=== PATIENT | female | born 1950 | race Caucasian/White ===

== ENCOUNTER 2023-01-27 10:44 | Day surgery (SDC) | payer MEDICARE, SELFPAY ==
[2022-11-14 07:31] VITALS: BMI 24.7
[2022-11-14 13:52] VITALS: BMI 24.5
[2023-01-15 10:29] VITALS: BMI 24.5
[2023-01-27 11:08] VITALS: BP 150/91; PULSE 70; RESP 16; TEMP 37.4; O2SAT 99; BMI 24.7
--- NOTE | 2023-01-27 11:11 | PM.HPGS ---
History of Present Illness History of Present Illness Consent: Risks, benefits, and alternatives have been discussed and questions answered. Patient agrees to proceed with procedure. Chief complaint: positive cologuard test Narrative: Bisi Garcia is a 72 year old female Presents for screening colonoscopy. Her recent Cologuard test was found to be positive. Patient's family history is significant that her mother had colon cancer. Patient states previous colonoscopy was 20 years ago. Was unremarkable at that time. Her current weight and bowel movements are normal. Patient denies abdominal pain. She has had no bleeding. Review of Systems Review of Systems: Systems is noncontributory. [facility] Past Medical History Medical History Anxiety Arthritis Osteoporosis Surgical History Surgical History H/O bilateral hip replacements (~02/2021) Left- 2020, Right 02/2021 H/O total mastectomy of left breast (~2015) H/O total mastectomy of right breast (~2015) History of carpal tunnel surgery of left wrist (~2011) History of Mohs surgery for squamous cell carcinoma of skin (~2015) Right inner thigh above knee Family History Family History Father Family history of diabetes mellitus in first degree relative Family history of coronary artery disease Patient's father is Mother Carcinoma of colon Other Diabetes mellitus Social History Social History (Updated 01/24/23 @ 14:58 by Sonia Lopez) Years smoked: 10 Smoking status: Former smoker Second hand tobacco smoke exposure: No Smoking end date: 02/17/83 Alcohol intake: current Substance use: never Substance use type: marijuana Lack of Transportation: No Lack of Food: Never True Current Housing: I Have Housing Concerned About Future Housing: No Difficulty Paying Gas/Electric Bills: No Difficulty Paying for Meds: No Currently Unemployed: No Education: Bachelor's Degree Difficulty w/ Childcare or Family Care: No Living arrangements: with family Occupation/Education: retired Gender identity (if verbalized by the patient): Female Sexual Orientation (if Verbalized by the Patient): Straight or Heterosexual Spiritual care concerns: No Agree to blood products: Yes Meds Home Medications and Allergies Home Medications Medication Instructions Recorded Confirmed Type zolpidem 10 mg tablet 10 mg PO .qhs #30 tabs 05/07/19 01/27/23 Rx alendronate 70 mg tablet 70 mg PO WEEKLY 06/14/22 01/27/23 History atorvastatin 20 mg tablet 20 mg PO QHS 06/14/22 01/27/23 History naproxen 500 mg tablet 500 mg PO DAILY 06/14/22 01/27/23 History Allergies Allergy/AdvReac Type Severity Reaction Status Date / Time amoxicillin Allergy Unknown Rash Verified 01/27/23 11:07 Exam Narrative: Physical exam reveals patient to be alert. Nine stable. HEENT exam is unremarkable. Patient is anicteric. Lungs are clear to auscultation and to percussion. Is without murmur or extra sounds. At sounds are present soft nontender with no organomegaly. Digital external rectal exam normal. Assessment and Plan Assessment and plan (1) Positive colorectal cancer screening using Cologuard test: Code(s): R19.5 - Other fecal abnormalities Status: Acute Assessment and Plan: Patient had positive Cologuard test the suggest higher chance of polyps. Colonoscopy to be performed today. (2) Family history of colon cancer in mother: Code(s): Z80.0 - Family history of malignant neoplasm of digestive organs Status: Acute Assessment and Plan: Patient reports her mother had colon cancer. Suggest follow-up colonoscopy at 5 year intervals.
[2023-01-27] MEDS: LACTATED RINGERS 1,000 ML 150 ML IV CONT (11:16)
--- NOTE | 2023-01-27 11:32 | WPDANESEPPF ---
Anes - Initial Pre Proc Eval Procedure: Operation Date: 01/27/23 14:00 Proposed Procedures p Diagnostic Colonoscopy - Kd Woodard MD Date/Time: 01/27/23 11:32 Surgeon: Kd Woodard MD Pre Op Diagnosis: positive cologuard test Patient Data Age: 72 Gender: F Height: 1.63 m Weight: 65.3 kg Last Vital Signs Temp 37.4 C 01/27/23 11:08 Pulse 70 01/27/23 11:08 Resp 16 01/27/23 11:08 BP 150/91 H 01/27/23 11:08 Pulse Ox 99 01/27/23 11:08 O2 Del Method Room Air 01/27/23 11:08 Allergies Allergy/AdvReac Type Severity Reaction Status Date / Time amoxicillin Allergy Unknown Rash Verified 01/27/23 11:07 Home Medications Medication Instructions Recorded Confirmed Type zolpidem 10 mg tablet 10 mg PO .qhs #30 tabs 05/07/19 01/27/23 Rx alendronate 70 mg tablet 70 mg PO WEEKLY 06/14/22 01/27/23 History atorvastatin 20 mg tablet 20 mg PO QHS 06/14/22 01/27/23 History naproxen 500 mg tablet 500 mg PO DAILY 06/14/22 01/27/23 History Patient hx anesthesia problems: none Family hx anesthesia problems: none Results Review: All pre-operative results and documents have been reviewed as part of the pre-operative evaluation. [facility] Past Medical History Medical History Anxiety Arthritis Osteoporosis Surgical History Surgical History H/O bilateral hip replacements (~02/2021) Left- 2020, Right 02/2021 H/O total mastectomy of left breast (~2015) H/O total mastectomy of right breast (~2015) History of carpal tunnel surgery of left wrist (~2011) History of Mohs surgery for squamous cell carcinoma of skin (~2015) Right inner thigh above knee Family History Family History Father Family history of diabetes mellitus in first degree relative Family history of coronary artery disease Patient's father is Mother Carcinoma of colon Other Diabetes mellitus Social History Social History Years smoked: 10 Smoking status: Former smoker Second hand tobacco smoke exposure: No Smoking end date: 02/17/83 Alcohol intake: current Substance use: never Substance use type: marijuana Lack of Transportation: No Lack of Food: Never True Current Housing: I Have Housing Concerned About Future Housing: No Difficulty Paying Gas/Electric Bills: No Difficulty Paying for Meds: No Currently Unemployed: No Education: Bachelor's Degree Difficulty w/ Childcare or Family Care: No Living arrangements: with family Occupation/Education: retired Gender identity (if verbalized by the patient): Female Sexual Orientation (if Verbalized by the Patient): Straight or Heterosexual Spiritual care concerns: No Agree to blood products: Yes Anes - Eval Final PreProcedure Day of Procedure 01/27/23 11:32 Patient weight: normal Heart: regular rate and rhythm Lungs: clear to auscultation Airway: Mallampati scale Neurological: alert and oriented Last oral intake: >/= 8 hours ASA classification: II Emergent: no Anesthetic plan: proceed Anesthesia type and monitoring: general GIVS and standard monitoring Results Review: All pre-operative results and documents have been reviewed as part of the pre-operative evaluation. Informed Consent: The patient's anesthetic plan and its attendant risks and benefits were discussed with the patient/family/POA. Questions were solicited and answers provided to the satisfaction of the patient/family/POA.
[2023-01-27 12:02] VITALS: BP 122/98; PULSE 68; RESP 16; O2SAT 99
--- NOTE | 2023-01-27 12:03 | WPDANESPN ---
Anes - Prog Note Post-Op Date/Time: 01/27/23 12:03 Cardiovascular status: normal Respiratory status: normal Airway patency: baseline Mental status: baseline Post-Op hydration status: normal Vital Signs: Last Vital Signs Temp 37.4 C 01/27/23 11:08 Pulse 70 01/27/23 11:08 Resp 16 01/27/23 11:08 BP 150/91 H 01/27/23 11:08 Pulse Ox 99 01/27/23 11:08 O2 Del Method Room Air 01/27/23 11:08 Pain Score (VAS): 0/10 I/O: Intake & Output 01/26/23 01/27/23 01/27/23 23:59 07:59 15:59 Intake Total 650 Balance 650 Patient Feedback: Patient satisfied with anesthetic care.
[2023-01-27 12:12] VITALS: BP 135/74; PULSE 72; RESP 16; O2SAT 99
[2023-01-27 12:22] VITALS: BP 122/70; PULSE 70; RESP 20; O2SAT 99
== END 2023-01-27 12:30 | disposition home or self-care (01) ==
PROVIDERS: PCP Family Medicine; Visit Provider Internal Medicine Gastroenterology
PROC: 0DJD8ZZ Inspection of Lower Intestinal Tract, Via Natural or Artificial Opening Endoscopic (ICD-10-PCS; CPT 45378; principal; 2023-01-27 14:00)
DX: Z80.0 Family history of malignant neoplasm of digestive organs (principal); R19.5 Other fecal abnormalities; K57.30 Diverticulosis of large intestine without perforation or abscess without bleeding; K64.8 Other hemorrhoids
CPT/HCPCS: 45378

== ENCOUNTER 2023-09-01 10:44 | Outpatient (CLI) | payer MEDICARE, SELFPAY ==
--- NOTE | ~2023-09-01 | DEXA_ITS ---
Bone Density Report Name: FAHEEM ALMANZAR Age: 73 Sex: Female Ethnicity: White Date of : 1950 Indication: postmenopausal; screening for osteoporosis; height loss; history of glucocorticoids; cancer; Referring Provider: ELLA RAMIREZ Study: Bone densitometry was performed. Exam Date: September 01, 2023 Accession number: [id number] Bone Density: Region BMD T-score Z-score Classification AP Spine(L1-L4) 0.974 -0.7 1.7 Normal World Health Organization criteria for BMD impression classify patients as: Normal (T-score at or above -1.0), Osteopenia (T-score between -1.0 and -2.5), or Osteoporosis (T-score at or below -2.5). Clinical Information Provided by Patient: Has taken Glucocorticoids Has used the following medications: Fosamax (i.e. alendronate) Has the following medical conditions: Cancer Patient maximum height was 64.5 Menopause Age: 58 No regular weight bearing exercise Drinks caffeinated beverages Onset of menses at age 13 Number of children 1 Impression: The patient has normal bone mass. The patient has risk factors, including: history of glucocorticoid therapy. Discussion: BONE DENSITY IS ABOVE THE MINIMUM DESIRABLE LEVEL AT ALL SKELETAL SITES TESTED. This patient?s bone mineral density is above the minimum desirable level (T-score -1.0 or better) at all sites measured. The patient should follow a healthful lifestyle (good nutrition with adequate calcium and vitamin D, and appropriate weight-bearing exercise). Follow-Up: Consider repeating this study in 5 years or sooner if there is some new clinical indication. Reported by: SAVAGE on 09/01/2023 11:24:00 AM. Reviewed, dictated and finalized at location ACece CARRASCO
== END 2023-09-01 10:45 | disposition home or self-care (01) ==
PROVIDERS: PCP Family Medicine; Visit Provider Family Medicine
DX: Z78.0 Asymptomatic menopausal state (principal); M81.0 Age-related osteoporosis without current pathological fracture
CPT/HCPCS: 77080

== ENCOUNTER 2023-11-20 12:48 | Outpatient (CLI) | payer MEDICARE, SELFPAY | END 2023-11-20 12:49 | disposition home or self-care (01) | LOC: CHSIMG 12:49 | PROVIDERS: PCP Family Medicine; Visit Provider Nurse Practitioner | DX: Z12.31 Encounter for screening mammogram for malignant neoplasm of breast (principal) | CPT/HCPCS: 99199 ==

== ENCOUNTER 2024-06-14 14:41 | Outpatient (CLI) | payer MEDICARE, SELFPAY ==
--- NOTE | ~2024-06-14 | CT_ITS ---
Clinical Indication: Atherosclerosis of aorta CT Scan of the Chest, Abdomen without Contrast: Technique: Contiguous sections were acquired throughout the chest and abdomen without IV contrast adm inistration. Dose reduction technique was used on this scan by utilizing automated exposure control a nd iterative reconstruction technique. The dose-length product (DLP) was 510.10 mGy-cm. Findings: There is no evidence of any significant mediastinal, hilar or axillary lymphadenopathy. There is mode rate atherosclerotic calcification of the thoracic aorta and coronary arteries. There is no evidence of pleural or pericardial effusion. The lungs are clear. No pulmonary nodules or infiltrates are noted. The liver, spleen, pancreas, gallbladder, adrenals and kidneys are within normal limits. There is ext ensive atherosclerotic calcification of the abdominal aorta and iliac vessels, without aneurysm. No l ymphadenopathy. Visualized bowel loops are unremarkable. No ascites. Impression: Atherosclerosis of the aorta, as detailed above. No aneurysm. Reviewed, dictated and finalized at location . Impression: Atherosclerosis of the aorta, as detailed above. No aneurysm.
== END 2024-06-14 14:42 | disposition home or self-care (01) ==
LOC: MICIMG 14:42
PROVIDERS: PCP Nurse Practitioner; Visit Provider Nurse Practitioner
DX: I70.0 Atherosclerosis of aorta (principal)
CPT/HCPCS: 71250; 74150

== ENCOUNTER 2024-11-08 16:04 | Outpatient (CLI) | payer MEDICARE, SELFPAY ==
--- OUTSIDE RECORDS SUMMARY | 2024-11-08 16:07 | XMS_ITS | Encounter Summary ---
Author Organization [facility] Healthcare Address [address] [place] [address] Care Team Providers Care Shaper Operator Name Role Phone Dc Carrillo MD Primary Care Provider Kath Choe MD Unavailable [phone] Alaina Quach MD Unavailable Last Grayson MD Unavailable [phone] Rickey Izaguirre MD Primary Care Provider [phone] Dominick Bliss MD Unavailable [phone] Encounter Details Date Type Department Care Team (Late st Contact Info) Description 05/16/2020 Telephone [facility] [address] [place] [address] Xiomy Kern, RT Social History Tobacco Use Types Packs/Day Years Used Date Smoking Tobacco: Former Smokeless Tobacco: Never Alcohol Use Standard Drinks/Week Comments Never 0 (1 standard drink = 0.6 oz pur e alcohol) AUDIT-C Answer Date Recorded Frequency of Alcohol Consumption Never 11/25/2019 Average Number of Drinks Not on file 020 Frequency of Binge Drinking Not on file 09/2019 Comments No Sex and Gender Information Value Date Recorded Sex Assigned at Not on file 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 Gender Identity Female 02/13/2021 8:39 AM CAUL DRESSER Sexual Orientation Not on file documented as of this encounter Plan of Treatment Not on file documented as of this encounter Visit Diagnoses Not on filedocumented in this encounter Care Teams Shaper Operator Relationship Specialty Start Date End Date Dc Carrillo MD [address] [place] [address] [place] [address] PCP - General 09/25/16 06/26/20 Rickey Izaguirre MD [address] [place] [address] PCP - General Family Medicine 06/27/20 Kath Choe MD [address] [place] [address] Surgeon Surgical Oncology 10/01/17 Alaina Quach MD [address] [facility] [address] [place] [address] Medical Oncologist/Floor Winder Medical Oncology 10/01/17 Last Grayson MD [address] [facility] [address] [place] [address] Plastic Surgeon Plastic Surgery 10/01/17 Dominick Bliss MD [address] [place] [address] Surgeon Orthopedic Surgery 03/07/21 documented as of this encounter
--- OUTSIDE RECORDS SUMMARY | 2024-11-08 16:07 | XMS_ITS | Clinical Summary ---
Author Organization [facility] Address [address] [place] [id number] Care Team Providers Care Wiper Blender Name Role Phone Unavailable Primary Care Provider Unavailabl e Immunizations Immunization Administration Dates Next Due MODERNA COVID-19 (12+) MRNA, LNP-S, PF, 100 MCG/ 0.5 ML DOSE 04/28/2020,03/31/2020 Social History Tobacco Use Types Packs/Day Years Used Date Smoking Tobacco: Never Assessed Comments Unknown Sex and Gender Information Value Date Recorded Sex Assigned at Not on file Legal Sex Female 8:18 PM CDT Gender Identity Not on file Sexual Orientation Not on file Plan of Treatment Health Maintenance Due Date Last Done Comments Colorectal Cancer Screening Colonoscopy (10 Years) 1950 Hepatitis C 06/19/1967 DTaP, Tdap and Td Vaccines ( 1 - Tdap) 1968 Pneumococcal Vaccine: 50+ Years (1 of 1 - PCV) 06/19/1999 Zoster Vaccines (1 of 2) 06/19/1999 Dexa Scan (General) 2014 RSV Immunization or 60+ Years (1 - 1-dose 75+ series) 2024 COVID-19 Vaccine (3 - 2024-2 6 season) 2024 04/28/2020, 03/31/2020 Meningococcal B Vaccine Aged Out No l onger eligible based on patient's age to complete this topic Meningococcal Vaccine Aged Out No horacio jasmeet eligible based on patient's age to complete this topic RSV Immunizations Under 20 Months Aged Out No longer eligible b ased on patient's age to complete this topic
--- OUTSIDE RECORDS SUMMARY | 2024-11-08 16:07 | XMS_ITS | Encounter Summary ---
Author Organization [facility] Address [address] [facility] [place] [address] Care Team Providers Care Recreation Leader Name Role Phone Bhupinder Thapa MD Unavailable [phone] Carla Lau DO Primary Care Provider [phone] Reason for Visit * Reason Onset Date Comments Medication Check 02/27/2024 Encounter Details Date Type Department Care Team (Late st Contact Info) Description 02/27/2024 Telephone [facility] - Centralized Scheduling [address] [place] [phone] Brent Dickinson MD [address] [place] [address] Medication Check Social History Tobacco Use Types Packs/Day Years Used Date Smoking Tobacco: Never Smokeless Tobacco: Never Alcohol Use Standard Drinks/Week Comments Yes 0 (1 standard drink = 0.6 oz pur e alcohol) social AUDIT-C Answer Date Recorded Q1: How often do you have a drink containing alcohol? Never 02/26/2024 Q2: How many drinks containi ng alcohol do you have on a typical day when you are drinking? Patient does not drink Q3: How often do you have si x or more drinks on one occasion? 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 COURSE LABORER documented in this encounter Plan of Treatment Not on file documented as of this encounter Visit Diagnoses Not on filedocumented in this encounter Care Teams Recreation Leader Relationship Specialty Start Date End Date Carla Lau DO [address] [place] [address] PCP - General Family Medicine 10/27/23 Bhupinder Thapa MD [address] [facility] [place] [address] Dermatology 10/08/23 documented as of this encounter
--- OUTSIDE RECORDS SUMMARY | 2024-11-08 16:08 | XMS_ITS | Clinical Summary ---
Author Organization [facility] Address [address] [facility] [place] [address] Care Team Providers Care Right Of Way Cutter Name Role Phone Bhupinder Thapa MD Unavailable [phone] Carla Lau DO Primary Care Provider [phone] Source Comments [facility],non-owned Affiliates and Associated Physician Practices is amultiple site organization consisting of ambulatory clinics and hospital sitesin [place], [place], [place] and [place]. This disclosure is being madepursuant to the Care Everywhere program and may not contain all information available regarding this patient. Last updated 17.[facility] Allergies Active Allergy Reactions Criticality Noted Date Comments Amoxicillin Rash Medium 11/28/2023 Medications * Be aware that medications may not be up to date on this document. Alwaysverify current medications with the patient. alendronate (Fosamax) 70 MG tablet Take 1 (one) tablet by mouth once a week 4 Active atorvastatin (Lipitor) 20 MG tablet Take 1 (one) tablet by mouth once daily Active vitamin D3 (Cholecalcifero l) 125 MCG (5000 UT) capsule Take 2,000 Units by mouth once daily Active multivitamins (One A Day) capsule Take 1 (one) capsule by mouth once daily Active zolpidem (Ambien) 10 MG tablet Take 1 (one) tablet by mouth at bedtime 4 Active dextran 70-hypromellose (Artificial Tears) 0.1-0.3 % SOLN 1-2 drops by Ophthalmic route as needed 10 mL 4 Active artificial tears ophthalmic ointment Instill into right eye 2 times daily 5 g 5 4 Active ibuprofen (Motrin) 400 MG tablet Take 1 (one) tablet by mouth every 6 hours 5 Active doxycycline hyclate 100 MG tablet Take 1 (one) tablet by mouth 2 times daily with morning and evening meal 5 Active naproxen (Naprosyn) 500 MG tablet 5 Active Active Problems Problem Noted Date Diagnosed Date 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 Dry eye 09/04/2024 Carpal tunnel syndrome 10/27/2023 Radiotherapy follow-up 10/27/2023 Bilateral primary osteoarthritis of knee 024 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 Lesion of right ulnar nerve 07/22/2022 Pain in right hand 05/01/2022 Primary osteoarthritis of right hip 05/23/2021 Aftercare following left hip joint replacement s urgery 03/19/2021 Primary osteoarthritis of right knee 12/21/2019 Osteopenia 01/19/2019 History of breast cancer 09/14/2018 Carcinoma of upper-inner quadrant of breast 12/19 Resolved Problems Problem Noted Date Diagnosed Date Resolved Date Malignant neoplasm of left b reast in female, estrogen receptor positive 10/02/2017 09/04/2024 Overview (10/27/2023): Multicenteric Encounters Date Type Department Care Team Description 10/05/2024 1:30 PM CDT Office Visit [facility] - Dermatology [address] [place] [phone] Castillo Andersen MD Scar (Primary Dx); Seborrheic keratoses 10/05/2024 Travel 09/23/2024 Telephone [facility] - Dermatology [address] [place] [phone] Castillo Andersen MD Surgery Scheduling 09/01/2024 11:15 AM CDT Office Visit [facility] - Ophthalmology [address] [place] [phone] Marlene Henson MD Cicatricial ectropion of right lower eyelid (Primary Dx); Dry eye; Malignant melanoma of face (HCC) 09/01/2024 Travel from Last 3 Months Social History Tobacco Use Types Packs/Day Years Used Date Smoking Tobacco: Never Smokeless Tobacco: Never Tobacco Cessation:Counseling Given: Not Answered Alcohol Use Standard Drinks/Week Comments Yes 0 [...] more drinks on one occasion? 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 Gender Identity Not on file Sexual Orientation Not on file Last Filed Vital Signs Vital Sign Reading Time Taken Comments Blood Pressure 136/84 04/26/2024 9:21 AM CDT Pulse 76 04/26/2024 9:21 AM CDT Temperature 36.4 C (97.6 F) 04/26/2024 9:21 AM CDT Respiratory Rate 18 04/26/2024 9:21 AM CDT Oxygen Saturation 96% 04/26/2024 9:21 AM CDT Inhaled Oxygen Concentration - - Weight 64 kg (141 lb) 04/26/2024 9:21 AM CDT Height 162.6 cm (5' 4) 04/26/2024 9:21 AM CDT Body Mass Index 24.2 04/26/2024 9:21 AM CDT Plan of Treatment Health Maintenance Due Date Last Done Comments COLOGUARD (AGES 45-75) - COL ON CA SCREENING 1950 COLON MONITORING 1950 COLONOSCOPY - COLON CA SCREENING 1950 CT COLONOGRAPHY - COLON CA SCREENING 1950 Colorectal Cancer Screening 1950 FIT - COLON CA SCREENING 1950 FLEX SIG - COLON CA SCREENING 1950 HEPATITIS C SCREENING 06/14/1967 DTAP/TDAP/TD VACCINES (1 - Tdap) 1968 PNEUMOCOCCAL VACCINE 50+ (1 of 1 - PCV) 06/19/1999 ZOSTER VACCINE (1 of 2) 06/19/1999 MAMMOGRAM 09/27/2018 09/27/2016 MEDICARE AWV CALENDAR YEAR 2024 Respiratory Syncytial Virus (RSV) Vaccine Pt: or over 60 yrs (1 - 1-dose 75+ series) 2024 COVID-19 VACCINE (3 - 2024-2 6 season) 2024 04/28/2020, 03/31/2020 INFLUENZA VACCINE (#1) 2024 BONE DENSITY TESTING Completed 02/03/2018, 01/22/2017 DEPRESSION SCREENING Completed 09/01/2024 HEPATITIS B VACCINE Aged Out No longe r eligible based on patient's age to complete this topic HIB VACCINE Aged Out No longer eligi ble based on patient's age to complete this topic HPV VACCINE Aged Out No longer eligi ble based on patient's age to complete this topic MENINGOCOCCAL (Group B) VACCINE SHARED DECISION-MAKING Aged Out No longer eligible based on patient's age to complete this topic MENINGOCOCCAL GROUPS A/C/Y/W VACCINE Aged Out No longer eligible b ased on patient's age to complete this topic Insurance [facility] MANAGED MEDICARE ADV Care Teams Right Of Way Cutter Relationship Specialty Start Date End Date Carla Lau DO [address] [place] [address] PCP - General Family Medicine 10/27/23 Bhupinder Thapa MD [address] [facility] [place] [address] Dermatology 10/08/23
--- OUTSIDE RECORDS SUMMARY | 2024-11-08 16:08 | XMS_ITS | Encounter Summary ---
Author Organization [facility] Healthcare Address [address] [place] [address] Care Team Providers Care Nautical Instrument Mechanic Name Role Phone Dc Carrillo MD Primary Care Provider Kath Choe MD Unavailable [phone] Alaina Quach MD Unavailable Last Grayson MD Unavailable [phone] Rickey Izaguirre MD Primary Care Provider [phone] Dominick Bliss MD Unavailable [phone] Reason for Visit * Reason Onset Date Comments Scheduling Appointments 06/13/2020 no answe r to confirm inj. 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 Gender Identity Female 02/13/2021 8:39 AM [employer] TECHNICIAN Sexual Orientation Not on file documented as of this encounter Plan of Treatment Not on file documented as of this encounter Visit Diagnoses Not on filedocumented in this encounter Care Teams Nautical Instrument Mechanic Relationship Specialty Start Date End Date Dc Carrillo MD [address] [place] [address] PCP - General 09/25/16 06/26/20 Rickey Izaguirre MD [address] [place] [address] PCP - General Family Medicine 06/27/20 Kath Choe MD [address] [place] [address] Surgeon Surgical Oncology 10/01/17 Alaina Quach MD [address] [facility] [address] [place] [address] Medical Oncologist/Senior Tax Analyst Medical Oncology 10/01/17 Last Grayson MD [address] [place] [address] Plastic Surgeon Plastic Surgery 10/01/17 Dominick Bliss MD [facility] [place] [address] Surgeon Orthopedic Surgery 03/07/21 documented as of this encounter
--- OUTSIDE RECORDS SUMMARY | 2024-11-08 16:08 | XMS_ITS | Clinical Summary ---
Author Organization [facility] Virtual Care Address [address] [place] [id number] Phone Care Team Providers Care Public Transit Bus Driver Name Role Phone Albert Choe MD Unavailable [phone] Alaina Quach MD Unavailable Last Grayson MD Unavailable [phone] Rickey Izaguirre MD Primary Care Provider [phone] Dominick Bliss MD Unavailable [phone] Allergies Active Allergy Reactions Criticality Noted Date Comments Amoxicillin Rash,Other (See comments) Medium 4 Rash on neck Medications zolpidem (AMBIEN) 10 mg tablet TAKE 1 TABLET BY MOUTH ONCE DAILY AT BEDTIME NEEDED 0 9 Active atorvastatin (LIPITOR) 10 mg tablet Take 1 tablet (10 mg total) by mouth daily Active multivitamin capsule Take 1 capsule by mouth daily Active cholecalciferol (VITAMIN D-3) 5,000 unit capsule Take 2,000 Units by mouth daily Takes occasionally Active ondansetron (ZOFRAN) 8 mg tabletIndicatio ns:Prevention of Post-Operative Nausea and Vomiting Take 1 tablet (8 mg total) by mouth every 8 (eight) hours as needed for nausea or vomiting 20 tablet 2 2 Active Additional Information Patient not taking.Reported on 10/25/2024 oxyCODONE-aceta minophen (PERCOCET) 5-325 mg per tabletIndicatio ns:Pain Take 1 tablet by mouth every 6 (six) hours as needed for pain 30 tablet 2 Active Additional Information Patient not taking.Reported on 10/25/2024 alendronate (FOSAMAX) 70 mg tablet 2 Active naproxen (NAPROSYN) 500 mg tablet TAKE 1 TABLET BY MOUTH TWICE DAILY WITH MEALS 60 tablet 4 Active Hospital, Clinic, or Other Facility Administered Medication Ordered Dose Route Frequency Start Date End Date Status lidocaine (XYLOCAINE) 20 mg/mL (2 %) injection 3 mLIndications:Admini stration of Local Anesthesia 3 mL One-Time Injection 10/25/2024 5 Ended lidocaine (XYLOCAINE) 20 mg/mL (2 %) injection 3 mLIndications:Admini stration of Local Anesthesia 3 mL One-Time Injection 10/25/2024 5 Ended methylPREDNISolone acetate (DEPO-medrol) injection 80 mgIndications:Primar y osteoarthritis of both knees 80 mg intra-artic One-Time Injection 10/25/2024 5 Ended methylPREDNISolone acetate (DEPO-medrol) injection 80 mgIndications:Primar y osteoarthritis of both knees 80 mg intra-artic One-Time Injection 10/25/2024 5 Ended Active Problems Problem Noted Date Diagnosed Date Bilateral primary osteoarthritis of knee 024 Primary osteoarthritis of right hip 05/23/2021 Aftercare following left hip joint replacement josue henson 03/19/2021 Primary osteoarthritis of right knee 12/21/2019 History of breast cancer 09/14/2018 Malignant neoplasm of left b reast in female, estrogen receptor positive 10/02/2017 Overview (10/02/2017): 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 12/19 Resolved Problems Problem Noted Date Diagnosed Date Resolved Date Primary osteoarthritis of left hip 12/22/2019 05/23/2021 Overview (12/22/2019): Added automatically from request for surgery [id number] Encounters Date Type Department Care Team Description 10/25/2024 11:45 AM CDT Office Visit [facility]opedic [facility] Medicine [address] [place] [phone] Rell Steel PA Primary osteoarthritis of both knees (Primary Dx) from Last 3 Months Surgical History Surgery Date Site/Laterality Comments FL FLUORO GUIDED INJECTION HIP LEFT 06/14/2020 Left FL FLUORO GUIDED INJECTION HIP LEFT 11/13/2020 Left BREAST SURGERY bilateral mastectomy SECTION CARPAL TUNNEL RELEASE Left Medical History Medical History Date Comments Malignant neoplasm of upper- inner quadrant of right female breast (HCC) Bilateral malignant neopl asm of upper inner quadrant of breast in female - (Added by TW Conv) Anxiety Hyperlipidemia Martínez's palsy Family History Medical History Relation Name Comments Colon cancer Mother Colon adenocarc inoma - (Added by TW Conv) Melanoma Other 1 Family history of malignant melanoma - (Added by TW Conv) Heart disease Other 2 Family history of cardiac disorder - (Added by TW Conv) Relation Name Status Comments Mother Other 1 Other 2 Social History Tobacco Use Types Packs/Day Years Used Date Smoking Tobacco: Former Smokeless Tobacco: Never Alcohol Use Standard Drinks/Week Comments Never 0 (1 standard drink = 0.6 oz pur e alcohol) AUDIT-C Answer Date Recorded Q1: How often do you have a drink containing alc ohol? 2-4 times a month 10/25/2024 Average Number of Drinks Not on file 025 Frequency of Binge Drinking Not on file 09/2024 Comments No Sex and Gender Information Value Date Recorded Sex Assigned at Not on file Legal Sex Female 10:20 AM APPRENTICE PAINTER HAND Gender Identity Female 02/13/2021 8:39 AM APPRENTICE PAINTER HAND Sexual Orientation Not on file Obstetrics History Last Filed Vital Signs Vital Sign Reading Time Taken Comments Blood Pressure 138/72 10/25/2024 11:49 AM CDT Pulse 81 10/25/2024 11:49 AM CDT Temperature 36.3 C (97.3 F) 07/31/2021 11:00 AM CDT Respiratory Rate 20 07/31/2021 11:00 AM CDT Oxygen Saturation 97% 07/31/2021 11:00 AM CDT Inhaled Oxygen Concentration - - Weight 63.5 kg (140 lb) 10/25/2024 11:49 AM CDT Height 160 cm (5' 3) 10/25/2024 11:49 AM CDT Body Mass Index 24.8 10/25/2024 11:49 AM CDT Plan of Treatment Health Maintenance Due Date Last Done Comments Colon Cancer Screening-Colonoscopy 1950 Depression Screening 1950 Hepatitis C Screening 1950 DTaP/Tdap/Td Vaccine (1 - Tdap) 1960 Hepatitis B Screening 06/19/1967 Pneumococcal vaccine 65+ (1 of 1 - PCV) 06/19/1999 Zoster Vaccine (1 of 2) 06/19/1999 Well Visit 65+ 2014 Osteoporosis Screening-Bone Density Scan 02/04/2020 02/03/2018, 01/22/2017 Fall Risk Assessment 07/31/2022 07/31/2021 Covid-19 Vaccine (4 - 2024-2 6 season) 2024 12/25/2020, 04/28/2020, 03/31/2020 Influenza Vaccine (#1) 2024 12/04/2020, 2019 Breast Cancer Screening-Mammogram Discontinued 017 Medical Devices Implanted Type Area Supervisor Force Adjustment Device Identifier Shelf Expiration Date Model / Serial / Lot [employer] [id number] Xenia 52mm Sector Hip Shell Acetabular Gription Sterile Latex Free - [id number] Implanted:Qty: 1 on 03/07/2021 by Dominick Bliss MD at [facility] Left: Hip [employer] 12/17/2030 [id number] / / [id number] [employer] 1217-35-500 Xenia 6.5mm 35mm Acetabular Cancellous Screw Bone Sterile - [id number] Implanted:Qty: 1 on 03/07/2021 by Dominick Bliss MD at [facility] Left: Hip [employer] 12/17/2030 1217-35-500 / / [id number] [employer] [id number] Actis 105mm Collar Hip 5 High Offset Stem Femoral - [id number] Implanted:Qty: 1 on 03/07/2021 by Dominick Bliss MD at [facility] Left: Hip [employer] 12/17/2030 [id number] / / [id number] [employer] [id number] Articul/Kunal 36mm Cementless Hip +1.5mm 12/14 Taper Head Femoral Latex Free - [id number] Implanted:Qty: 1 on 03/07/2021 by Dominick Bliss MD at [facility] Left: Hip [employer] 12/17/2025 [id number] / / [id number] [employer] [id number] Quickset 25mm 1 Piece Flexible Bit Drill - Sjtlot - [id number] Implanted:Qty: 1 on 03/07/2021 by Dominick Bliss MD at [facility] Left: Hip [employer] [id number] / [id number] / [id number] [employer] [id number] Xenia 52mm 36mm Hip Neutral Liner Acetabular Altrx Sterile Latex Free - [id number] - [id number] Implanted:Qty: 1 on 03/07/2021 by Dominick Bliss MD at [facility] Left: Hip [employer] [id number] 01/16/2026 [id number] / [id number] / [id number] [employer] Actis 105mm Collar Hip 5 High Offset Stem Femoral [id number] - [id number] Implanted:Qty: 1 on 07/30/2021 by Dominick Bliss MD at [facility] Right: Hip [employer] 02/16/2031 [id number] / / [id number] [employer] Articul/Kunal 36mm Cementless Hip +1.5mm 12/14 Taper Head Femoral Latex Free [id number] - [id number] Implanted:Qty: 1 on 07/30/2021 by Dominick Bliss MD at [facility] Right: Hip [employer] 06/16/2026 [id number] / / [id number] [employer] Xenia 52mm 36mm Hip Neutral Liner Acetabular Altrx Sterile Latex Free [id number] - [id number] Implanted:Qty: 1 on 07/30/2021 by Dominick Bliss MD at [facility] Right: Hip [employer] 06/16/2026 [id number] / / [id number] [employer] Xenia 52mm Sector Hip Shell Acetabular Gription Sterile Latex Free [id number] - [id number] Implanted:Qty: 1 on 07/30/2021 by Dominick Bliss MD at [facility] Right: Hip [employer] 06/17/2031 [id number] / / [id number] [employer] Xenia 6.5mm 35mm Acetabular Cancellous Screw Bone Sterile 1217-35-500 - [id number] Implanted:Qty: 1 on 07/30/2021 by Dominick Bliss MD at [facility] Right: Hip [employer] 04/17/2031 1217-35-500 / / [id number] Procedures Procedure Name Priority Date/Time Associated Diagnosis Comments SC ARTHROCENTESIS ASPIR&/INJ MAJOR JT/BURSA W/O US Routine 10/25/2024 11:45 AM CDT Primary osteoarthritis of both knees DEXA AXIAL SKELETON BONE DENSITY 1 OR MORE SITES Schedule Routine, Read Routine (OP Routine) 02/03/2018 3:18 PM APPRENTICE PAINTER HAND Carcinoma of upper-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, estrogen receptor positive (HCC) Malignant neoplasm of left breast in female, estrogen receptor positive, unspecified site of breast (HCC) SCREENING MAMMOGRAM Routine 09/27/2016 1 :51 PM CDT from Last 3 Months or Most Recently Relevant to Health Maintenance Results * SC ARTHROCENTESIS ASPIR&/INJ MAJOR JT/BURSA W/O US (10/25/2024 11:45 AM CDT) Narrative Rell Steel PA - 10/25/2024 11:45 AM CDT Rell Steel PA 10/25/2024 12:19 PM Large Joint (Hip, Knee, Shoulder) Injection: bilateral knee Performed by: Rell Steel PA Authorized by: Rell Steel PA Large Joint Injection/Aspiration: Consent Given by: Patient Site marked: the procedure site was marked Verbal consent obtained: Yes Supporting Documentation: Indications: Pain Procedure Details: Location: Knee Site: Bilateral knee Needle Size: 22 G Approach: Superior lateral Ultrasound guided: No Fluroscopic guidance: No Medications Right Large Joint Injection: 80 mg methylPREDNISolone acetate 80 mg/mL; 3 mL lidocaine 20 mg/mL (2 %) Medications Left Large Joint Injection: 80 mg methylPREDNISolone acetate 80 mg/mL; 3 mL lidocaine 20 mg/mL (2 %) Patient tolerance: Patient tolerated the procedure well with no immediate complications us Rell SARKAR IN CLINIC/BEDSIDE ORDERABLE S Final Result * Dexa Axial Skeleton Bone Density 1 or 2 Site (02/03/2018 3:18 PM APPRENTICE PAINTER HAND) Anatomical Region Laterality Modality Body N/A Radiographic Becki ging Narrative 02/04/2018 8:25 AM APPRENTICE PAINTER HAND Patient Name: Bisi Garcia Date of : 1950 Date of scan: 02/02/2018 Bone mineral density was performed on a [employer] Discovery Densitometer. Machine Cross-calibration and Precision studies have been performed with a least significant change of 0.024 g/cm at the spine, 0.020 g/cm at the total proximal femur, and 0.014g/cm at the forearm. HISTORY: This is a 67 y.o. postmenopausal female with a history of breast cancer. Currently on treatment with Aromatase inhibitor and vitamin D. History of tobacco use: History Smoking Status Former Smoker INDICATIONS: Menopause status, treatment monitoring and aromatase inhibitor use. FINDINGS: BONE MINERAL DENSITY OF THE LUMBAR SPINE Bone Mineral Density (BMD) of the lumbar spine was measured from L1-L4 and the average density was calculated to be 0.928 gm/cm. This corresponds to a T-score standard deviations from the mean of young adults of -1.1. There is no previous study available for comparison. BONE MINERAL DENSITY OF THE PROXIMAL FEMUR Bone Mineral Density (BMD) of the left hip total was found to be 0.777 gm/cm2. This corresponds to a T-score standard deviations from the mean of young adults of -1.3. Femoral neck is 0.661 gm/cm2 with a T-score of -1.7. There is no previous study available for comparison. SUMMARY: Bone mineral density shows evidence of low bone mass in the spine and hip and moderately increased fracture risk. ADDITIONAL COMMENTS: If the patient has a history of a fragility fracture, a fracture that occurred with trauma equivalent to a fall from a standing position or less, then the diagnosis is osteoporosis. The risk of osteoporotic fracture increases approximately 2-fold for each 1.0 SD decrease in T-score. However, low bone density is not the only risk factor for fracture. Other factors include patient s age, previous osteoporotic fracture or prior fracture as an adult, loss of height of greater than 2 inches, corticosteroid use, risk of falling, risk of injury, and family history of osteoporosis. Not everyone with low bone mineral density has osteoporosis. Osteomalacia and other metabolic bone disorders should also be considered where indicated. Patients who have osteoporosis should be evaluated for specific diseases and conditions (secondary causes) that may cause or contribute to bone loss. Consider repeating this study in 1-2 years to assess the patient s response to treatment, if applicable. It is recommended that any follow up exam be performed on the same machine if possible for better accuracy. DEFINITIONS: Osteoporosis: BMD at or below -2.5 T-score Osteopenia (low bone mass): BMD between -1.0 and-2.5 T-score. The Bone Health Program adopts the following WHO definitions: Osteoporosis: BMD below -2.5 S.D. as compared to the BMD of young normal adults. Osteopenia or Low Bone Mass: BMD between -1.0 and -2.5 S.D. below the BMD of young normal adults. Normal Bone Density: BMD equal to or greater than -1.0 S.D. as compared to the BMD of young normal adults. References: 1) Grzegorz, Annals of Internal Medicine 114(11): 919-923 (1990) 2) Benedict, Lancet 341 : 72-75 (1992) 3) Black, Journal Bone and Mineral Research 7(6): 633-8 (1991) 4) Kj, Journal Bone and Mineral Research 8(10):1227-33 (1992) The history and data sections of the bone mineral density scan were prepared by Naya Owusu) who is accredited by the International Society of Clinical Densitometry. The overall patient assessment and scan interpretation were performed by Tootie Gomez M.D. who is certified by the International Society of Clinical Densitometry. [id number] us Alejandra Kinney NP IMAnt DXA PROCEDURES Final R esult * Screening Mammogram (09/27/2016 1:51 PM CDT) Anatomical Region Laterality Modality Breast N/A Mammography 09/27/2016 1:51 PM CDT Narrative 09/27/2016 1:51 PM CDT VIANEY BOWSER M.D. FINAL REPORT The radiology attending physician has personally reviewed this study, and has reviewed and/or edited this written report and agrees with it. ACC# Date Time Exam [id number] Sep 27, 2016 08:44:00 [facility] [id number] BrstBx+Loc MR forStatistic R [id number] Sep 27, 2016 08:42:00 R 84422 Breast Bx incl Loclz MR Gd [id number] Sep 27, 2016 08:51:00 [facility] [id number] Procedure Mammo, unilat R Technologist(s): Mercedez Desir; ; EXAMINATION: RIGHT BREAST CORE NEEDLE BIOPSY USING MRI GUIDANCE, WITH TISSUE MARKER CLIP PLACEMENT AND POST-BIOPSY MAMMOGRAM HISTORY: 66-year-old woman. Recent diagnosis of low-grade invasive lobular carcinoma of the left breast. Extent of disease breast MRI performed at [facility] on 09/25/2016 demonstrated an an oval, partially spiculated mass at the 2 o'clock position in the medial right breast. MRI-guided core needle biopsy is requested to evaluate for malignancy. PROCEDURE AND FINDINGS: The risks and potential benefits of the procedure were discussed with the patient and written informed consent was obtained. The patient was placed in the prone position on the MRI table. After sterile preparation of the skin, the breast was placed in a medial compression grid. Magnetic resonance imaging was performed with a dedicated breast imaging coil both before and after the intravenous administration of gadolinium and subtracted images were obtained. Estimated GFR: > 60 ml/min/1.73 square meters Creatinine: 12 mg/dL Contrast: Dotarem, 0.6 ml 1% lidocaine was utilized for local anesthesia at the skin puncture site and 2% lidocaine with epinephrine was utilized for deeper local anesthesia/hemostasis about the biopsy site. A small skin incision was made with a #11 scalpel blade. A 9 gauge Suros introducer needle and sheath were then advanced through the skin incision to the level of the lesion of interest from a medial approach utilizing MRI guidance. Additional magnetic resonance images were obtained to confirm appropriate sheath positioning. Subsequently, a 9 gauge Suros vacuum assisted biopsy needle was advanced to the level of the lesion of interest through the sheath and a total of 6 tissue cores were obtained. The post biopsy magnetic resonance images confirm that the biopsy cavity is in the expected position. A TriMark hourglass tissue marker clip was then placed at the biopsy site. The sheath was removed and hemostasis was achieved. A sterile bandage and an ice pack were applied. The patient tolerated the procedure well and there was no evidence of significant immediate complication. The patient was given verbal as well as written post procedural instructions prior to release from the department. The tissue cores were submitted to surgical pathology in formalin for histologic analysis. A two-view right unilateral full field digital mammogram was obtained post procedure and this demonstrates that the tissue marker clip is in the expected position. The attending radiologist, Dr. Bowser, was present throughout the entire procedure. Dr. Murphy (breast imaging fellow) and Dr. Quick (diagnostic cardiac cath lab radiology technologist) also participated in this examination. IMPRESSION: Successful vacuum-assisted core needle biopsy of the area of interest in the right breast utilizing MRI guidance. Pathology pending. ADDENDUM #1 by Talisha Lundy, [facility] for Dr. Vianey Bowser on 10/06/16 at 12:32pm: Histopathology from the core needle biopsy of the area of interest in the RIGHT breast demonstrates invasive ductal carcinoma grade 2/3 and dissociated fragments of atypical ductal epithelium suggestive of low grade ductal carcinoma in situ. This is a malignant finding and requires surgical intervention. The patient was notified of the biopsy results and recommendations by the referring physician Dr. Albert Choe, who will direct surgical management of the patient's biopsy-proven bilateral breast cancer. Requested By: Albert Choe M.D. Dictated By: ANETA MURPHY M.D. on Sep 27 2016 2:22P This document has been electronically signed by: VIANEY BOWSER M.D. on Sep 27 2016 2:43P Addendum Dictated by: TALISHA LUNDY [facility] on Oct 06 2016 12:37P This Addendum has been electronically signed by: VIANEY BOWSER M.D. on Oct 09 2016 7:04P [id number] BOWSER M.D. FINAL REPORT The radiology attending physician has personally reviewed this study, and has reviewed and/or edited this written report and agrees with it. Attending: ALBERT CHOE Requesting: Albert Choe Requesting Fax: Attending Fax: Attending ID: [id number] Requesting ID: [id number] Report To 1 ID: [id number] Report To 1 Name: , Report To 1 FAX: NextGen Order #: Procedure Note Miscellaneous, Not In File - 12/15/2016 VIANEY BOWSER M.D. FINAL REPORT The radiology attending physician has personally reviewed this study, and has reviewed and/or edited this written report and agrees with it. ACC# Date Time Exam [id number] Sep 27, 2016 08:44:00 [facility] [id number] BrstBx+Loc MR forStatistic R [id number] Sep 27, 2016 08:42:00 R 10191 Breast Bx incl Loclz MR Gd [id number] Sep 27, 2016 08:51:00 [facility] [id number] Procedure Mammo, unilat R Technologist(s): Mercedez Desir; ; EXAMINATION: RIGHT BREAST CORE NEEDLE BIOPSY USING MRI GUIDANCE, WITH TISSUE MARKER CLIP PLACEMENT AND POST-BIOPSY MAMMOGRAM HISTORY: 66-year-old woman. Recent diagnosis of low-grade invasive lobular carcinoma of the left breast. Extent of disease breast MRI performed at [facility] on 09/25/2016 demonstrated an an oval, partially spiculated mass at the 2 o'clock position in the medial right breast. MRI-guided core needle biopsy is requested to evaluate for malignancy. PROCEDURE AND FINDINGS: The risks and potential benefits of the procedure were discussed with the patient and written informed consent was obtained. The patient was placed in the prone position on the MRI table. After sterile preparation of the skin, the breast was placed in a medial compression grid. Magnetic resonance imaging was performed with a dedicated breast imaging coil both before and after the intravenous administration of gadolinium and subtracted images were obtained. Estimated GFR: > 60 ml/min/1.73 square meters Creatinine: 12 mg/dL Contrast: Dotarem, 0.6 ml 1% lidocaine was utilized for local anesthesia at the skin puncture site and 2% lidocaine with epinephrine was utilized for deeper local anesthesia/hemostasis about the biopsy site. A small skin incision was made with a #11 scalpel blade. A 9 gauge Suros introducer needle and sheath were then advanced through the skin incision to the level of the lesion of interest from a medial approach utilizing MRI guidance. Additional magnetic resonance images were obtained to confirm appropriate sheath positioning. Subsequently, a 9 gauge Suros vacuum assisted biopsy needle was advanced to the level of the lesion of interest through the sheath and a total of 6 tissue cores were obtained. The post biopsy magnetic resonance images confirm that the biopsy cavity is in the expected position. A TriMark hourglass tissue marker clip was then placed at the biopsy site. The sheath was removed and hemostasis was achieved. A sterile bandage and an ice pack were applied. The patient tolerated the procedure well and there was no evidence of significant immediate complication. The patient was given verbal as well as written post procedural instructions prior to release from the department. The tissue cores were submitted to surgical pathology in formalin for histologic analysis. A two-view right unilateral full field digital mammogram was obtained post procedure and this demonstrates that the tissue marker clip is in the expected position. The attending radiologist, Dr. Bowser, was present throughout the entire procedure. Dr. Murphy (breast imaging fellow) and Dr. Quick (diagnostic cardiac cath lab radiology technologist) also participated in this examination. IMPRESSION: Successful vacuum-assisted core needle biopsy of the area of interest in the right breast utilizing MRI guidance. Pathology pending. ADDENDUM #1 by Talisha Lundy, [facility] for Dr. Vianey Bowser on 10/06/16 at 12:32pm: Histopathology from the core needle biopsy of the area of interest in the RIGHT breast demonstrates invasive ductal carcinoma grade 2/3 and dissociated fragments of atypical ductal epithelium suggestive of low grade ductal carcinoma in situ. This is a malignant finding and requires surgical intervention. The patient was notified of the biopsy results and recommendations by the referring physician Dr. Albert Choe, who will direct surgical management of the patient's biopsy-proven bilateral breast cancer. Requested By: Albert Choe M.D. Dictated By: ANETA MURPHY M.D. on Sep 27 2016 2:22P This document has been electronically signed by: VIANEY BOWSER M.D. on Sep 27 2016 2:43P Addendum Dictated by: TALISHA LUNDY [facility] on Oct 06 2016 12:37P This Addendum has been electronically signed by: VIANEY BOWSER M.D. on Oct 09 2016 7:04P [id number] BOWSER M.D. FINAL REPORT The radiology attending physician has personally reviewed this study, and has reviewed and/or edited this written report and agrees with it. Attending: ALBERT CHOE Requesting: Albert Choe Requesting Fax: Attending Fax: Attending ID: [id number] Requesting ID: [id number] Report To 1 ID: [id number] Report To 1 Name: , Report To 1 FAX: NextGen Order #: Albert Choe MD IMG MAMMO PROCEDURES Ed ited Result - Final from Last 3 Months or Most Recently Relevant to Health Maintenance Insurance [employer] HMO [facility] [place] Address: [facility] [address] [place] [address] [facility] [place] [facility] Address: [address] [address] [place] [address] [facility] [place] [facility] [place] [facility] Address: [address] [address] [place] [address] Advance Directives For more information, please contact: [phone] * Full Code (Latest Code Status on File) Date Activated Date Inactivated Comments 07/30/2021 1:27 PM 07/31/2021 6:02 PM * Full Code Date Activated Date Inactivated Comments 03/07/2021 12:01 PM 03/07/2021 7:50 PM Care Teams Public Transit Bus Driver Relationship Specialty Start Date End Date Rickey Izaguirre MD [address] [place] [address] PCP - General Family Medicine 06/27/20 Albert Choe MD [address] [place] [address] Surgeon Surgical Oncology 10/01/17 Alaina Quach MD [address] [facility] [address] [place] [address] Medical Oncologist/Social Work Assistant Medical Oncology 10/01/17 Last Grayson MD [address] [place] [address] Plastic Surgeon Plastic Surgery 10/01/17 Dominick Bliss MD [address] [place] [address] Surgeon Orthopedic Surgery 03/07/21
--- OUTSIDE RECORDS SUMMARY | 2024-11-08 16:08 | XMS_ITS | Encounter Summary ---
Author Organization [facility] Healthcare Address [address] [place] [address] Care Team Providers Care Feather Shaper Name Role Phone Kath Choe MD Unavailable [phone] Alaina Quach MD Unavailable Last Grayson MD Unavailable [phone] Rickey Izaguirre MD Primary Care Provider [phone] Dominick Bliss MD Unavailable [phone] Encounter Details Date Type Department Care Team (Late st Contact Info) Description 11/10/2020 Telephone [facility] [address] [place] [id number] Kathleen Fisher, RT Social History Tobacco Use Types Packs/Day [...] on file 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 Gender Identity Female 02/13/2021 8:39 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 Sexual Orientation Not on file documented as of this encounter Plan of Treatment Not on file documented as of this encounter Visit Diagnoses Not on filedocumented in this encounter Care Teams Feather Shaper Relationship Specialty Start Date End Date Rickey Izaguirre MD [address] [place] [address] PCP - General Family Medicine 06/27/20 Kath Choe MD [address] [place] [address] Surgeon Surgical Oncology 10/01/17 Alaina Quach MD [address] [facility] [address] [place] [address] Medical Oncologist/Natural Sciences Manager Medical Oncology 10/01/17 Last Grayson MD [address] [place], [place] [id number] Plastic Surgeon Plastic Surgery 10/01/17 Dominick Bliss MD [address] [place] [address] Surgeon Orthopedic Surgery 03/07/21 documented as of this encounter
--- OUTSIDE RECORDS SUMMARY | 2024-11-08 16:08 | XMS_ITS | Encounter Summary ---
Author Organization [facility] Address [address] [place] [address] Care Team Providers Care Instructional Coordinator Name Role Phone Bhupinder Thapa MD Unavailable Carla Lau DO Primary Care Provider [phone] Reason for Visit * Reason Onset Date Comments Surgery Scheduling 01/13/2024 Encounter Details Date Type Department Care Team (Late st Contact Info) Description 01/13/2024 Telephone [facility] - Centralized Scheduling [address] [place] [id number] Brent Dickinson MD [address] [place] [address] Surgery Scheduling Social History Tobacco Use Types Packs/Day Years Used Date Smoking Tobacco: Never Smokeless Tobacco: Never Alcohol Use Standard Drinks/Week Comments Yes 0 (1 standard drink = 0.6 oz pur e alcohol) social Comments Unknown Sex and Gender Information Value Date Recorded Sex Assigned at Not on file 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 D SUPPORT CASE OFFICER documented in this encounter Plan of Treatment Not on file documented as of this encounter Visit Diagnoses Not on filedocumented in this encounter Care Teams Instructional Coordinator Relationship Specialty Start Date End Date LosCarla pradoDO [address] [place] [address] PCP - General Family Medicine 10/27/23 Bhupinder Thapa MD [address] [place] [address] Dermatology 10/08/23 documented as of this encounter
--- OUTSIDE RECORDS SUMMARY | 2024-11-08 16:08 | XMS_ITS ---
Author Organization [facility] Virtual Care Address [address] [place] [id number] Phone Care Team Providers Care Chief Operator Synthesis Name Role Phone Kath Choe MD Unavailable [phone] Alaina Quach MD Unavailable Last Grayson MD Unavailable [phone] Rickey Izaguirre MD Primary Care Provider [phone] Dominick Bliss MD Unavailable [phone] Active Problems Problem Noted Date Diagnosed Date Bilateral primary osteoarthritis of knee 024 Primary osteoarthritis of right hip 05/23/2021 Aftercare following left hip joint replacement s natividad 03/19/2021 Primary osteoarthritis of right knee 12/21/2019 History of breast cancer 09/14/2018 Malignant neoplasm of left b reast in female, estrogen receptor positive 10/02/2017 Overview (10/02/2017): 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 Past Treatment and Therapy Plans No past plan information found. Lifetime Dose Tracking * Chemical Lifetime Dose Automatic Entry Manual Entr y Fluoro Time 0.463 minutes 0.463 minutes 0 minutes Air kerma at the reference point (Ka,r) 6.08 mGy 6 .08 mGy 0 mGy Treatment Summaries Carcinoma of upper-inner quadrant of breast (HCC)* No information on file. , No information on file. This Survivorship Care Plan is a cancer treatment summary and follow-up plan and is provided to youto keep with your health care records and to share with your primary care provider or any of your doctors and nurses. This summary is a brief record of major aspects of your cancer treatment not a detailed or comprehensive record of your care. You should review this with your cancer provider. Treatment Summary and Survivorship Care Plan for Breast Cancer Provided by Tressa Dai RN on 10/01/17 General Information Patient name Bisi Garcia (home) Date of 1950 Health Care Providers (Including Names, Institutions) Provider Name: Contact Information: Primary Care Physician Dc Carrillo MD [phone] Surgeon Kath Choe MD [phone] Medical Oncologist Alaina Quach MD [phone] Plastic Surgeon Last Grayson MD [phone] Other Providers Treatment Summary Cancer Diagnosis Information Diagnosis Carcinoma of upper-inner quadrant of breast (CMS/HCC) Diagnosis date 01/08/2017 Staging information Right breast - invasive ductal carcinoma, Estrogen positive, Progesterone positive, HER-2 negative. Stage I Right axillary lymph nodes 0/6 no malignancy. Left breast - invasive lobular carcinoma, Estrogen positive, Progesterone negative, HER-2 negative.Stage IIA. Left axillary lymph nodes 0/3 no malignancy. Treatment Completed Surgery Carcinoma of upper-inner quadrant of breast (CMS/HCC) 12/11/2016 Surgery 1. Injection of Lymphazurin blue dye to bilateral breasts. 2. Bilateral sentinel lymph node biopsy. 3. Bilateral skin-sparing simple mastectomy. Radiation None Chemotherapy Summary - None Research Studies SATISFY-SOS Status On study Start Date 05/07/17 Persistent symptoms or side effects that have continued after finishing treatment: Family History Cancer Cancer-related family history includes Colon cancer in her mother; Melanoma in an other family member. Genetic Testing Tell your provider if there is a history of cancer in your family, if another member of your familywas diagnosed with cancer since your last visit. The following risk factors may indicate that breast cancer could run in the family: ??? Sikhism heritage ??? History of ovarian cancer in the patient or any 1st or 2nd degree relative ??? Any 1st degree relative with breast cancer before the age of 50 ??? Two or more 1st or 2nd degree relative diagnosed with breast cancer at any age ??? Patient or relative diagnosed with bilateral breast cancer ??? History of breast cancer in a male relative Treatment Ongoing Additional Treatment Start Date Planned Duration Possible Side Effects Aromatase Inhibitors (anastrozole, exemestane and letrozole) 01-22-2017 5-10 years Hot flashes, joint/muscle aches, vaginal dryness and bone loss (common); hair thinning (rare) Other rare side effectsmay occur. Antiresorptive medications Fever and flu symptoms, low levels of calcium in your blood, bone and joint pain, constipation or diarrhea, low energy, feeling sick, changes in kidneys, irritation of the food pipe, changes to the jaw bone. Tell your dentist you are taking this medication. Calcium + Vitamin D 19-50 years age and males age 51-70 years: recommend 1,000 mg/day calcium & 600 IU/day vitamin D ??? Females age 51-70 1200 mg/day calcium and 600 IU/day vitamin D ??? Over 70 years age take 1200 mg/day calcium and 800 IU/day of vitamin D An irregular heartbeat; nausea, constipation; weakness, drowsiness, headache; dry mouth, or a metallic taste in your mouth; or muscle or bone pain. Other: Follow-up Care Plan Your follow-up care plan is design to inform you and primary care providers regarding the recommended and required follow-up, cancer screening and routine health maintenance that is needed to maintain optimal health. Coordinating Provider When/How often Alaina Quach MD Every 3 months for year 1 to 3 Alaina Quach MD Every 6 months for year 4 to 5 Dc Carrillo After 5 years, annual follow up Cancer Surveillance or other Recommended Tests Coordinating Provider Test How Often Medical Oncologist: Alaina Quach MD Pap/pelvic exam (woman only) As indicated by provider Medical Oncologist: Alaina Quach MD Bone Density - done 01-22-2017 Every 2 years if on an aromatase inhibitor or as indicated by your provider CT/PET and tumor markers. Not recommended in the absence of signs or symptoms of cancer recurrence Possible late- and long-term effects that someone with this type of cancer and treatment may experience: It is important to remember that these symptoms can be due to other causes like diabetes or with normal aging. If these or any other new symptoms occur bring these to attention of your health care provider. These symptoms should be brought to the attention of your provider: 1. Anything that represents a brand new symptom; 2. Anything that represents a persistent symptom; 3. Anything you are worried about that might be related to the cancer coming back. Please continue to see your primary care provider for all general health care recommended for a patient your age such as routine immunizations, and routine non-breast cancer screening like colonoscopy or bone density exams. Consult with your health care provider about prevention and screening for bone loss using bone density tests. Cancer survivors may experience issues with the areas listed below. If you have any concerns in these or other areas, please speak with your doctors or nurses to find out how you can get help with them. ?? Anxiety and depression ?? Emotional and mental health ?? Fatigue ?? Fertility ?? Financial advice or assistance ?? Insurance ?? Memory or concentration loss ?? Parenting ?? Physical functioning ?? School/work ?? Sexual functioning ?? Stopping smoking ?? Weight changes ?? Other A number of lifestyle/behaviors can affect your ongoing health, including the risk for the cancer coming back or developing another cancer. Discuss these recommendations with your doctor or nurse: 1. Eat a healthy diet: focus on lean meats and proteins, more fruits, vegetables and whole grains and low in sugars and fats. Limit red meat and avoid processed meat. 2. Maintain a healthy weight; avoid being overweight. Aim for a normal body mass index (BMI) of 18.5-24.9. Help learning to eat healthier, call the industrial engineering professor at: [facility] [phone]. 3. Have an active lifestyle, strive for 30 minutes of moderate exercise 5 times a week and strengthor resistance training at least twice a week. 4. Use broad-spectrum (UVA+UVB) sunscreen with SPF 30 or greater, is water resistant, limit time spent in the sun (10 am-4 pm), wear hat, wear UV protective clothing, wear sunglasses. Never use a tanning bed. Skin that was irradiated may be more sensitive over your lifetime. 5. Do not smoke or chew tobacco; participate in a smoking cessation program. 6. Limit alcohol intake, 1 drink per day for a woman and 2 drinks per day for a man. Resources you may be interested in: ?? [facility] http://www.[facility]/ [facility] 1st floor of [facility] [phone]. Computer access, educational material, counseling services (FREE) ?? Cancer Resources: www.cancer.net ?? [place] Disabilities Act: The U.S. Department of Justice provides information about the Americans with Disabilities Act (ADA). Toll free number http://www.ada.gov/ ?? Occupational Therapy at [facility]. Improve memory and thinking following chemotherapy. Improve your performance at home, work and in the community. or Toll free www.ot.[facility]/patients ?? Managing your weight after a cancer diagnosis: http://www.cancer.net/sites/cancer.net/files/weight_after_cancer_diagnosis.pdf ?? National Coalition for Cancer Survivorship: http://www.canceradvocacy.org/ ?? [place] Cancer Society Cancer Survivors Network: http://csn.cancer.org/ ?? [employer] Cancer: https://survivorship.cancer.gov/ an online tool for cancer survivors and caregivers created by the [place] Cancer Society and the National Cancer [place]. It provides: ?? Information on dealing with side effects from cancer and treatment ?? Caregivers with support and resources ?? Practical advice about talking to friends and family about cancer ?? Questions to ask their health care team ?? Help understanding their rights in the workplace Other comments: Resolved Problems Problem Noted Date Diagnosed Date Resolved Date Primary osteoarthritis of left hip 12/22/2019 05/23/2021 Overview (12/22/2019): Added automatically from request for surgery [id number]
--- NOTE | 2024-11-08 16:10 | ECHO_ITS ---
Patient Info Name: Bisi Garcia Age: 74 years : 1950 Gender: Female Ht: 63 in Wt: 138 lbs BSA: 1.68 m2 HR: 65 bpm BP: 141 / 71 mmHg Technical Quality: TDS due to breast implants Exam Date: 11/08/2024 4:20 PM Patient Status: O Admit Date: 11/08/2024 Exam Type: CA echo doppler color flow Complete two-dimensional, color flow and Doppler transthoracic echocardiogram is performed. Car Dryer: Mehnaz Ricardo Attending Provider: Carla Lau Summary 1. Complete two-dimensional, color flow and Doppler transthoracic echocardiogram is performed. 2. Technically suboptimal study due to poor sonographic images. 3. Left ventricular chamber dimension is normal. 4. Left ventricular systolic function is normal, estimated at 65-70. 5. The left ventricular diastolic function is grade I diastolic dysfunction. 6. E/e' 8 is minimally elevated. 7. The aortic valve is not well visualized. Cannot determine number of aortic valve leaflets. 8. There is trace aortic valve regurgitation. 9. There is trace tricuspid valve regurgitation. 10. No pulmonary hypertension, estimated pulmonary arterial systolic pressure is 21 mmHg. Left Ventricle Technically suboptimal study due to poor sonographic images. Left ventricular chamber dimension is normal. Left ventricular systolic function is normal, estimated at 65-70. The left ventricular diastolic function is grade I diastolic dysfunction. E/e' 8 is minimally elevated. Right Ventricle Right ventricular chamber dimension is normal. Right ventricular systolic function is normal. Left Atria Left atrial chamber dimension is normal. Right Atria Right atrial chamber dimension is normal. Aortic Valve The aortic valve is not well visualized. Cannot determine number of aortic valve leaflets. There is no aortic valve stenosis. There is trace aortic valve regurgitation. Pulmonic Valve There is no pulmonic regurgitation. Mitral Valve There is no mitral valve stenosis. There is no mitral valve regurgitation. Tricuspid Valve There is trace tricuspid valve regurgitation. No pulmonary hypertension, estimated pulmonary arterial systolic pressure is 21 mmHg. Pericardium/Pleural There is no pericardial effusion. Inferior Vena Cava Normal inferior vena cava with >50% collapse upon inspiration consistent with normal right atrial pressure, 5 mmHg. Aorta The aortic root size at the sinus of Valsalva is normal. Left Ventricular Outflow Tract Name Value Normal LVOT 2D LVOT Diameter 1.9 cm LVOT Doppler LVOT Peak Velocity 123 cm/s LVOT Peak Gradient 6 mmHg LVOT Mean Gradient 4 mmHg LVOT VTI 28 cm LVOT VTI/AV VTI Ratio 1.0 LVOT Stroke Volume 84 ml LVOT CO 16.2 l/min LVOT CI 9.6 l/min/m2 Mitral Valve Name Value Normal MV Diastolic Function MV E Peak Velocity 70 cm/s MV A Peak Velocity 77 cm/s MV E/A 0.9 MV Decel Time (PW) 199 ms MV Annular TDI MV E/e' (Septal) 8.6 MV E/e' (Lateral) 8.9 MV E/e' (Average) 8.8 Tricuspid Valve Name Value Normal TV Regurgitation Doppler TR Peak Velocity 201 cm/s TR Peak Gradient 16 mmHg Estimated PAP/RSVP RA Pressure 5 mmHg <=5 PA Systolic Pressure 21 mmHg <36 RV Systolic Pressure 21 mmHg <36 TV Annular TDI TV Lateral Kimber s' Velocity 11.9 cm/s >=9.5 Aorta Name Value Normal Ascending Aorta Ao Root Diameter (MM) 2.8 cm Ao Root Diam Index (MM) 1.6 cm/m2 Aortic Valve Name Value Normal AV Doppler AV Peak Velocity 129 cm/s AV Peak Gradient 7 mmHg AV Mean Gradient 4 mmHg AV VTI 29 cm AV Area (Cont Eq VTI) 2.9 cm2 >=3.0 AV Area (Cont Eq Rian) 2.8 cm2 AV DI (Rian) 0.95 AV Regurgitation 2D LVOT Area 3.0 cm2 Ventricles Name Value Normal LV Dimensions 2D/MM IVS Diastolic Thickness (2D) 1.0 cm 0.6-1.0 LVID Diastole (2D) 3.7 cm 3.8-5.2 LVIW Diastolic Thickness (2D) 1.0 cm 0.6-0.9 LVID Systole (2D) 2.5 cm 2.2-3.5 LVOT Diameter 1.9 cm LV Mass (2D Cubed) 113.63 g 67.00-162.00 LV Mass Index (2D Cubed) 68 g/m2 43-95 Relative Wall Thickness (2D) 0.53 <=0.42 LV Fractional Shortening/Ejection Fraction 2D/MM LV Fractional Shortening (2D) 32 % 27-45 LV EF (2D Teichholz) 61 % LV Diastolic Volume (4C MOD) 76 ml LV EF (4C MOD) 72 % LV Diastolic Volume (2C MOD) 75 ml LV EF (2C MOD) 66 % LV Diastolic Volume (BP MOD) 76 ml 46-106 LV Diastolic Volume Index (BP MOD) 45 ml/m2 29-61 LV Systolic Volume (BP MOD) 24 ml 14-42 LV Systolic Volume Index (BP MOD) 14 ml/m2 8-24 LV EF (BP MOD) 68 % 54-74 LV Diastolic Length (4C) 8.1 cm LV Systolic Length (4C) 6.1 cm LV Stroke Volume (4C MOD) 55 ml Atria Name Value Normal LA Dimensions LA Volume (4C A-L) 40 ml LA Volume (BP A-L) 39 ml RA Dimensions RA Area (4C) 13.6 cm2 <=18.0 Report Signatures
== END 2024-11-08 16:05 | disposition home or self-care (01) ==
PROVIDERS: PCP Family Medicine; Visit Provider Family Medicine
DX: R01.1 Cardiac murmur, unspecified (principal)
CPT/HCPCS: 93306